=== PATIENT | male | born 1975 | race Hispanic/Latino ===

== ENCOUNTER 2018-01-13 12:54 | Emergency (ER) | payer MEDICAID ==
[2018-01-13 12:54] VITALS: BMI 25.0
[2018-01-13] MEDS ORDERED: Sodium Chloride 0.9% 1,000 ML IV STA (13:22)
[2018-01-13 13:25] VITALS: RESP 18; TEMP 98
[2018-01-13 13:51] LABS: URINE BILIRUBIN NEGATIVE (NEGATIVE); URINE BLOOD NEGATIVE (NEGATIVE); URINE GLUCOSE (UA) NEGATIVE (NEGATIVE); URINE LEUKOCYTE ESTERASE TRACE Leu/uL (NEGATIVE); URINE PROTEIN NEGATIVE mg/dL (<30 mg/dL); URINE UROBILINOGEN 0.2 E.U./dL (<1 E.U./dL)
[2018-01-13 13:53] LABS: URINE APPEARANCE CLEAR (CLEAR); URINE COLOR YELLOW (YELLOW)
[2018-01-13 13:53] LABS: BASO # 0.01 K/mm3 (0.0-2.0); BASO % 0.2 % (0.0-3.0); EOS # 0.2 (0.0-0.7); EOS % 3.4 % (1.5-5.0); GRAN % 56.3 % (50.0-68.0); HEMOGLOBIN 13.1 g/dL (14.0-18.0); LYMPH # 1.8 (1.2-3.4); LYMPH % 33.1 % (22.0-35.0); MEAN CELL VOLUME 93.6 fl (80.0-105.0); MEAN CORPUSCULAR HEMOGLOBIN 31.2 pg (25.0-35.0); MEAN CORPUSCULAR HGB CONC 33.3 g/dl (31.0-37.0); MEAN PLATELET VOLUME 10.4 fl (7.0-11.0); MONO # 0.4 (0.1-0.6); RBC 4.2 10^6/uL (3.5-6.1); RED CELL DISTRIBUTION WIDTH 13.4 % (11.5-14.5); WHITE BLOOD COUNT 5.3 10^3/uL (4.5-11.0)
[2018-01-13 14:17] LABS: ALB/GLOB RATIO 1.4 (1.1-1.8); ALBUMIN 4.4 g/dL (3.0-4.8); ALT/SGPT 48 U/L (7-56); AST/SGOT 32 U/L (17-59); BLOOD UREA NITROGEN 15 mg/dL (7-21); CALCIUM 9.4 mg/dL (8.4-10.5); GFR NON-AFRICAN AMERICAN > 60; LIPASE 70 U/L (23-300)
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
[2018-01-13 14:28] LABS: URINE BACTERIA NEG (NEG); URINE RBC 0 - 2 /hpf (0-2); URINE WBC 0 - 2 /hpf (0-6)
[2018-01-13] MEDS ORDERED: Iohexol 350 MG/100 ML VIAL ONE (14:42)
[2018-01-13 15:12] VITALS: BP 107/67; PULSE 48; O2SAT 99
--- NOTE | 2018-01-13 15:22 | CT ---
Date of service: 01/13/2018 PROCEDURE: CT Abdomen and Pelvis with contrast HISTORY: abd pain COMPARISON: None available. TECHNIQUE: Contrast dose: 100 mL Omnipaque 350 Radiation dose: Total exam DLP = 638.98 mGy-cm. This CT exam was performed using one or more of the following dose reduction techniques: Automated exposure control, adjustment of the mA and/or kV according to patient size, and/or use of iterative reconstruction technique. FINDINGS: LOWER THORAX: No visible consolidation, pleural effusion, or pneumothorax. LIVER: Hypoattenuation of the liver compatible with hepatic steatosis. Hepatomegaly. GALLBLADDER AND BILE DUCTS: Gallbladder distension. No calcified gallstones identified. PANCREAS: Unremarkable. SPLEEN: Splenomegaly. ADRENALS: Unremarkable. KIDNEYS AND URETERS: The kidneys enhance symmetrically. No hydronephrosis or obstructing calculus identified. VASCULATURE: No aortic aneurysm. No atherosclerotic calcification or mural plaque present. BOWEL: Stomach is nondistended. Lack of oral contrast limits evaluation for bowel pathology. Bowel loops appear within normal limits of caliber without evidence of obstruction. APPENDIX: The appendix appears within normal limits of caliber. No secondary signs of acute appendicitis. PERITONEUM: No significant free fluid. No definite free air. LYMPH NODES: No bulky adenopathy identified. BLADDER: Unremarkable. REPRODUCTIVE: Unremarkable. BONES: No acute osseous abnormality is detected. OTHER FINDINGS: Tiny fat containing umbilical hernia. IMPRESSION: Severe splenomegaly. Hepatomegaly. Hypoattenuation of the liver compatible with hepatic steatosis. Gallbladder distension. No calcified gallstones identified. Additional findings as above.
== END 2018-01-13 16:26 | disposition home or self-care (01) ==
LOC: ED 12:54
DX: K59.00 Constipation, unspecified (principal); R10.9 Unspecified abdominal pain; F17.210 Nicotine dependence, cigarettes, uncomplicated
CPT/HCPCS: 74177; 80053; 81001; 83690; 85025; 87086; 96361; 96374; 99284; J1885; J7030; Q9967

== ENCOUNTER 2018-01-16 07:17 | Emergency (ER) | payer MEDICAID ==
[2018-01-16 07:27] VITALS: RESP 16; TEMP 97.9; BMI 28.1
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
[2018-01-16 08:20] VITALS: BP 116/70; PULSE 60; O2SAT 97
--- NOTE | 2018-01-16 10:59 | RAD ---
Date of service: 01/16/2018 HISTORY: Constipation. COMPARISON: 01/13/2018 CT abdomen and pelvis. FINDINGS: BOWEL: Constipation without fecal impaction or obstruction. BONES: Normal. OTHER FINDINGS: Enlarged spleen. IMPRESSION: Constipation without mechanical obstruction. Splenomegaly, finding better appreciated on recent CT scan.
== END 2018-01-16 08:16 | disposition home or self-care (01) ==
LOC: ED 07:17
DX: K59.03 Drug induced constipation (principal)

== ENCOUNTER 2018-02-17 08:22 | Emergency (ER) | payer MEDICAID ==
[2018-02-17 08:22] VITALS: BMI 28.1
[2018-02-17 08:45] VITALS: RESP 18; TEMP 97.9
[2018-02-17] MEDS ORDERED: Oxycodone/Acetaminophen 5/325 mg Tab PO STA (09:52)
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
[2018-02-17 10:28] VITALS: BP 119/74; PULSE 58; O2SAT 99
== END 2018-02-17 10:30 | disposition home or self-care (01) ==
LOC: ED 08:22
DX: K08.89 Other specified disorders of teeth and supporting structures (principal); K04.7 Periapical abscess without sinus
CPT/HCPCS: 96372; 99282; J1885